=== PATIENT | female | born 1950 | race African-American/Black ===

== ENCOUNTER 2021-01-08 16:45 | Observation (INO) ==
[2021-01-08] MEDS ORDERED: ACETAMINOPHEN 325 MG TABLET PO PRN (16:46)
[2021-01-08] MEDS ORDERED: ONDANSETRON 4 MG/2 ML VIAL IV PRN (16:46)
[2021-01-08] MEDS ORDERED: DOCUSATE SODIUM 100 MG CAPSULE PO PRN (16:46)
[2021-01-08] MEDS ORDERED: GLUCAGON 1 MG VIAL IM PRN ×2 (16:46→16:56)
[2021-01-08] MEDS ORDERED: DEXTROSE 50% 25 GM/50 ML VIAL IV PRN ×2 (16:46→16:56)
[2021-01-08] MEDS: SODIUM CHLORIDE 0.9% 1,000 ML IV SCH (18:42)
[2021-01-08] MEDS ORDERED: POTASSIUM CHLORIDE 20 MEQ TABLET PO ONE (20:00)
[2021-01-08] MEDS ORDERED: ENOXAPARIN 40 MG/0.4 ML SYRINGE SUBCUT SCH (21:00)
[2021-01-08] MEDS: INSULIN LISPRO 100 UNIT/ML SUBCUT SCH (21:12)
[2021-01-09 07:45] LABS: Basophils # 0.1 10*3/uL (0.0-0.2); Basophils % 0.7 % (0.0-0.8); Eosinophils # 0.2 10*3/uL (0.0-0.87); Eosinophils % 2.5 % (0.00-10.9); Immature Granulocytes % 0.6 %; Immature Granulocytes Absolute 0.04 #; Lymphocytes % 29.6 % (21.3-54.2); Mean Corpuscular HGB Conc 32.5 GM/DL (32-36); Mean Corpuscular Volume 88.1 FL (87-102); Mean Platelet Volume 10.2 FL (9.6-12.0); Monocytes % 11.2 % (1.7-12.7); Neutrophils % 55.4 % (38.7-73.9); Platelet Count 227 T/CUMM (130-400); Red Blood Count 4.54 MC/CUMM (3.8-5.5); Red Cell Distribution Width 14.2 % (9.3-17.3); White Blood Count 6.9 T/CUMM (4-12)
[2021-01-09 08:20] LABS: Troponin I < 0.015 NG/ML (0.00-0.045)
[2021-01-09 08:27] LABS: Calcium 9.3 MG/DL (8.5-10.1); Osmolality,Calculated 278.4 MOS/KG (273-304); Potassium 3.3 MMOL/L (3.5-5.1)
[2021-01-09 08:30] LABS: Risk Ratio 4.61; VLDL CHOLESTEROL 68.4 MG/DL
[2021-01-09] MEDS: INSULIN LISPRO 100 UNIT/ML SUBCUT SCH ×2 (08:48→11:36)
[2021-01-09] MEDS ORDERED: hydroCHLOROthiazide 25 MG TABLET PO SCH (09:00)
[2021-01-09] MEDS ORDERED: AZELASTINE NASAL 137 MCG/SPRAY 30 ML BOTTLE BOTH NARES SCH (09:00)
[2021-01-09] MEDS ORDERED: POTASSIUM CHLORIDE 20 MEQ TABLET PO SCH (09:00)
[2021-01-09] MEDS ORDERED: PANTOPRAZOLE 40 MG TABLET PO SCH (09:00)
[2021-01-09] MEDS ORDERED: SIMVASTATIN 20 MG TABLET PO SCH (09:00)
[2021-01-09] MEDS ORDERED: METOPROLOL SUCCINATE XL 100 MG TABLET PO SCH (09:00)
[2021-01-09] MEDS ORDERED: FLUTICASONE 50 MCG NASAL SPRAY 16 GM BOTTLE BOTH NARES SCH (09:00)
[2021-01-09] MEDS: SODIUM CHLORIDE 0.9% 1,000 ML IV SCH (09:55)
[2021-01-09] MEDS ORDERED: GLUCAGON 1 MG VIAL IM PRN (10:02)
[2021-01-09] MEDS ORDERED: DEXTROSE 50% 25 GM/50 ML VIAL IV PRN (10:02)
[2021-01-09] MEDS ORDERED: ASPIRIN EC 81 MG TABLET PO SCH (11:00)
[2021-01-09 16:05] VITALS: BP 130/64
== END 2021-01-09 16:26 | disposition home or self-care (01) ==
LOC: N.5E
PROVIDERS: ADMIT Family Medicine; ATTEND Family Medicine